=== PATIENT | male | born 1955 | race Caucasian/White ===

== ENCOUNTER 2020-05-23 14:20 | Emergency (ER) | payer MEDICARE, OTHER ==
[~2020-05-23] VITALS: Ht 170.2 cm; Wt 86.4 kg
[~2020-05-23 14:20] MED LIST: CRESTOR40 MG PO; ST. JOSEPH81 M1 PO
[2020-05-23 14:30] VITALS: BP 146/72; TEMP 98.2
[2020-05-23] MEDS ORDERED: CRESTOR20 MG PO (15:25)
[2020-05-23] MEDS ORDERED: PREDNISONE50 MG PO ×3 (15:57→17:11)
[2020-05-23] MEDS ORDERED: VALIUM 10MG10 MG/TAB PO (15:57)
[2020-05-23] MEDS ORDERED: PERCOCET 325 MG1 TAB PO (15:57)
[2020-05-23 17:11] VITALS: PULSE 67
== END 2020-05-23 17:11 | disposition home or self-care (01) ==
LOC: COL.ER 14:20
DX: M54.41 Lumbago with sciatica, right side (principal); M79.89 Other specified soft tissue disorders; I10 Essential (primary) hypertension

== ENCOUNTER → 2020-05-28 | Outpatient (CLI) | payer MEDICARE, OTHER ==
[~2020-05-28] MED LIST changes: +CRESTOR20 MG PO; +PERCOCET 325 MG1 TAB PO; +PREDNISONE50 MG PO; +VALIUM 10MG10 MG/TAB PO
== END ==
LOC: COL.RAD 13:36
DX: M51.16 Intervertebral disc disorders with radiculopathy, lumbar region (principal)

== ENCOUNTER 2020-09-17 07:02 | Emergency (ER) | payer MEDICARE, OTHER ==
[~2020-09-17] VITALS: Ht 170.2 cm; Wt 86.4 kg
[2020-09-17 07:09] VITALS: TEMP 97.6
[2020-09-17] MEDS ORDERED: PERCOCET 325 MG1 TA3 PO (07:56)
[2020-09-17] MEDS ORDERED: NORFLEX 10100 MG/TAB PO (07:56)
[2020-09-17 08:10] VITALS: BP 168/70; PULSE 68
== END 2020-09-17 08:09 | disposition home or self-care (01) ==
LOC: COL.ER 07:02
DX: M54.41 Lumbago with sciatica, right side (principal); E78.00 Pure hypercholesterolemia, unspecified

== ENCOUNTER 2020-09-20 21:39 | Emergency (ER) | payer MEDICARE, OTHER ==
[~2020-09-20] VITALS: Ht 170.2 cm; Wt 86.4 kg
[~2020-09-20 21:39] MED LIST changes: +NORFLEX 10100 MG/TAB PO; +PERCOCET 325 MG1 TA3 PO
[2020-09-20 21:58] VITALS: TEMP 98.3
[2020-09-20] MEDS ORDERED: PREDNISONE10 MG PO (22:25)
[2020-09-20 22:58] VITALS: BP 154/85; PULSE 88
== END 2020-09-20 22:58 | disposition home or self-care (01) ==
LOC: COL.ER 21:39
DX: M54.16 Radiculopathy, lumbar region (principal); Z79.52 Long term (current) use of systemic steroids
CPT/HCPCS: J1170; J2550

== ENCOUNTER 2024-01-18 06:01 | Inpatient (IN) | payer MEDICARE, OTHER ==
[~2024-01-18] VITALS: Ht 170.2 cm; Wt 87.7 kg
[~2024-01-18 06:01] MED LIST changes: -CRESTOR20 MG PO; +PREDNISONE10 MG PO
[2024-01-25] VITALS (10 sets, daily range): BP systolic 114–188; BP diastolic 54–100; PULSE 56–110; TEMP 98–98.7
[2024-01-25] MEDS ORDERED: NS Flush 10 ML SYRINGE PRN ICA (08:45)
[2024-01-25] MEDS ORDERED: Sotalol 80 MG TAB PO BID PO SCH (09:00)
[2024-01-25] MEDS ORDERED: NS Flush 10 ML SYRINGE BID ICA SCH (09:00)
[2024-01-25] MEDS ORDERED: TRICOR145 MG PO (09:02)
[2024-01-25] MEDS ORDERED: HYGROTON 2525 MG/TAB PO (09:03)
[2024-01-25] MEDS ORDERED: NORVASC 10MG10 MG PO (09:03)
[2024-01-25] MEDS ORDERED: KLOR-CON M1010 MEQ PO (09:05)
[2024-01-25] MEDS ORDERED: TOPROL XL 25MG25 MG PO (09:05)
[2024-01-25] MEDS ORDERED: PHENERGAN 25 TA25 MG PO (09:07)
[2024-01-25] MEDS ORDERED: ATIVAN 1MG T1 MG/TAB PO (09:08)
[2024-01-25] MEDS ORDERED: PEPCID 20MG TAB20 MG PO (09:09)
[2024-01-25] MEDS ORDERED: TYLENOL 500MG500 MG PO (09:12)
[2024-01-25] MEDS ORDERED: DRISTAN15 ML NS (09:13)
[2024-01-25 10:08] LABS: ALBUMIN 4.3 gm/dL (3.4-4.8); BILIRUBIN,TOTAL 0.5 mg/dL (0.2-1.2); CALCIUM 10.1 mg/dL (8.4-10.2); CREATININE, serum 1.23 mg/dL (0.72-1.25); MAGNESIUM 1.6 mg/dL (1.6-2.6); TOTAL PROTEIN 7.6 gm/dL (6.2-8.1)
[2024-01-25] MEDS ORDERED: Mag/Al Hydrox/Simeth Susp 30 ML CUP PO PRN (10:15)
[2024-01-25] MEDS ORDERED: Temazepam 15 MG CAP PO PRN (10:15)
[2024-01-25] MEDS ORDERED: Docusate Sodium 100 MG CAP PO PRN (10:15)
[2024-01-25] MEDS ORDERED: LORazepam 2 MG/ML 1 ML VIAL IM PRN (10:15)
[2024-01-25] MEDS ORDERED: LORazepam 1 MG TAB PO PRN ×2 (10:15→13:15)
[2024-01-25] MEDS ORDERED: LORazepam 2 MG/ML 1 ML VIAL IV PRN (10:15)
[2024-01-25 10:24] LABS: POTASSIUM 2.9 mmol/L (3.5-4.5)
[2024-01-25 10:25] LABS: INR 1.1 (0.8-3.0); PROTHROMBIN TIME 11.9 SECONDS (9.7-12.8)
[2024-01-25 10:28] LABS: BASO # 0.1 K/mm3 (0.0-0.2); BASO % 0.9 % (0.0-2.0); EOS % 0.3 % (0.0-4.0); GRAN # 7.5 K/mm3 (1.4-6.5); HEMATOCRIT 41.4 % (42.0-52.0); HEMOGLOBIN 14.7 g/dl (13.5-18.0); LYMPH # 2.2 K/mm3 (1.2-3.4); LYMPH % 19.9 % (20.0-51.0); MEAN CELL VOLUME 91 fl (80.0-100.0); MEAN CORPUSCULAR HEMOGLOBIN 32 pg (27-31); MEAN CORPUSCULAR HGB CONC 36 g/dl (33.0-37.0); MEAN PLATELET VOLUME 9.8 fl (7.4-10.4); MONO % 9.3 % (1.7-9.3); PLATELET COUNT 325 K/mm3 (130-400); RED BLOOD COUNT 4.57 M/mm3 (4.20-5.60); REDCELL DISTRIBUTION WIDTH-CV 12.2 % (11.5-14.5)
[2024-01-25] MEDS ORDERED: oxyCODONE/Acetaminophen 10-325 MG TAB PO PRN (13:00)
[2024-01-25] MEDS ORDERED: oxyCODONE 5 MG TAB PO PRN (13:15)
[2024-01-25] MEDS ORDERED: Acetaminophen 500 MG TAB PO PRN (13:15)
[2024-01-25] MEDS ORDERED: Famotidine 20 MG TAB PO PRN (13:15)
[2024-01-25] MEDS ORDERED: Promethazine 25 MG TAB PO PRN (13:15)
--- NOTE | 2024-01-25 13:30 | NUR ---
Patient admitted to unit around 0830. Gait steady, no assistive devices noted. HR tachycardic. Patient alert and oriented x4. Education provided on what to expect during hospital stay with sotalol and daily EKGs. 22g IV initiated to right hand x2 attempts. Patient brought home medications in, med rec complete. Home medications labeled with patient sticker and placed in med room. Pharmacy notified. 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 Usual amount is 5-7 per cardiology. CIWA protocol initiatied with Q2 hour vital signs. Lab called this nurse with a potassium of 2.9, cardiology notified. Call light within reach, all needs met at this time.
[2024-01-25] MEDS ORDERED: Oxymetazoline 0.05% Nasal Spray 30 ML BOTTLE NS SCH (14:00)
[2024-01-25] MEDS ORDERED: Magnesium Sulfate 4% 50 ML IV ONE (14:30)
[2024-01-25] MEDS ORDERED: *Potassium Replacement Protocol MC SCH (14:30)
[2024-01-25] MEDS ORDERED: Potassium Bicarbonate/Citrate 20 MEQ Effervescent TAB PO SCH (14:45)
[2024-01-25] MEDS ORDERED: Potassium Chloride 100 ML IV SCH ×2 (14:45→16:45)
--- NOTE | 2024-01-25 19:12 | NUR ---
Potassium continues to be replaced with PO supplements. Attempted IV potassium, but patient could not tolerate it and states it burned too much. Verbal orders obtained from Dr. Sanchez around 1730 to discontinue IV potassium and utilize PO instead. Potassium lab re-check scheduled already. Patient resting in bed with call light in reach, all needs met at this time.
[2024-01-25] MEDS ORDERED: Atorvastatin 40 MG TAB PO SCH (21:00)
[2024-01-25] MEDS ORDERED: Rosuvastatin 20 MG **** subs to Atorvastatin 40 MG PO SCH (21:00)
--- NOTE | 2024-01-25 21:58 | NUR ---
Patient assessed around 2114. Alert and oriented, and able to make needs known. Denies having pain and discomfort. Peripheral INT to right hand. Denies SOB and dyspnea. LS CTA. HRR. Telemetry in place. BSAx4. 2+ edema BLE. Patient refused Lipitor, stating that it does not work for him, and he takes Crestor at time. Reports medications were sent to pharmacy earlier today. Will request that medication be changed to home medication tomorrow. Voices no further questions, needs, or concerns at this time. In bed with call light within reach.
[2024-01-26] VITALS (18 sets, daily range): BP systolic 116–156; BP diastolic 42–78; PULSE 50–86; TEMP 97.5–99.3
[2024-01-26 06:41] LABS: BASO # 0.1 K/mm3 (0.0-0.2); BASO % 1.3 % (0.0-2.0); EOS # 0.1 K/mm3 (0.0-0.7); EOS % 1.6 % (0.0-4.0); GRAN # 3.5 K/mm3 (1.4-6.5); GRAN % 51.7 % (42.2-75.2); HEMATOCRIT 40.7 % (42.0-52.0); HEMOGLOBIN 14.1 g/dl (13.5-18.0); LYMPH # 2.1 K/mm3 (1.2-3.4); LYMPH % 30.9 % (20.0-51.0); MEAN CELL VOLUME 92 fl (80.0-100.0); MEAN CORPUSCULAR HEMOGLOBIN 32 pg (27-31); MEAN CORPUSCULAR HGB CONC 35 g/dl (33.0-37.0); MEAN PLATELET VOLUME 9.7 fl (7.4-10.4); MONO # 0.9 K/mm3 (0.1-0.6); MONO % 14.1 % (1.7-9.3); PLATELET COUNT 287 K/mm3 (130-400); RED BLOOD COUNT 4.43 M/mm3 (4.20-5.60); REDCELL DISTRIBUTION WIDTH-CV 12.2 % (11.5-14.5)
--- NOTE | 2024-01-26 07:00 | NUR ---
PT RESTING IN BED WATCHING TV. PT IS RA. PT IS SB ON TELE. PT IS AXOX3. PT HAS CALL LIGHT AND INSTRUCTED TO CALL WITH ALL NEEDS.
[2024-01-26 07:04] LABS: CALCIUM 9.8 mg/dL (8.4-10.2); CREATININE, serum 1.12 mg/dL (0.72-1.25); POTASSIUM 3.3 mmol/L (3.5-4.5)
--- NOTE | 2024-01-26 08:19 | NUR ---
PT REQUESTS TO TAKE HOME CRESTOR AND STATES LIPITOR DOES NOT WORK FOR HIM. SANTOSH RICE WITH CARDIOLOGY NOTIFIED AND ORDER RECEIVED. PHARMACY CALLED TO LABEL HOME MEDICATION.
[2024-01-26] MEDS ORDERED: Fenofibrate 54 MG TABLET PO SCH (09:00)
[2024-01-26] MEDS ORDERED: Patient's Own Medication Item PO SCH (09:00)
[2024-01-26] MEDS ORDERED: Fenofibrate (Tricor) 145 MG **** subs to Fenofibrate (Lofibra) 162 MG PO SCH (09:00)
[2024-01-26] MEDS ORDERED: amLODIPine 10 MG TAB PO SCH (09:00)
[2024-01-26] MEDS ORDERED: Chlorthalidone 25 MG TAB PO SCH (09:00)
[2024-01-26 11:56] LABS: TRICYCLIC ANTIDEPRESS URINE NEGATIVE (NEGATIVE)
--- NOTE | 2024-01-26 13:01 | NUR ---
boom stick worker met with pt to complete intake. He reports he lives with his , Josey [phone] in [place]. He sees LEAD SLOT TECHNICIAN Natalie Archer and obtains medications from [facility] with no difficulties. He is independent with ADLS and uses a cane for DME. He reports he ambulates fine with no mobility issues. He states he has a DPOA-HC at home listing his . Discharge Plan: Home
--- NOTE | 2024-01-26 13:47 | NUR ---
Initial visit; Patient originally from [place]. He and Desk Maker talked about [place] beach [place]. He thanked Desk Maker for wishing him well and offering God's blessings.
--- NOTE | 2024-01-26 19:36 | NUR ---
Patient's HR 50s at this time. Last night, HR was decreasing into low 40s. Call placed to Dr. Madison at this time to see if he was ok with Sotalol being given still. Order received to continue with Sotalol as ordered.
--- NOTE | 2024-01-26 19:58 | NUR ---
Patient assessed around 1950. Alert and oriented, and able to make needs known. Denies having pain and discomfort at this time. Peripheral INT to right hand. Denies SOB and dyspnea. LS CTA in upper lobes, diminished in lower. HRR. Telemetry in place-sinus jannie in the 50s at this time. BSAx4. Voices no questions, needs, or concerns at this time. Encouraged to call when ready for pain medication for back, and voiced understanding. In bed with call light within reach.
--- NOTE | 2024-01-26 22:43 | NUR ---
Patient given PRN Oxycodone for pain as requested.
[2024-01-27] VITALS (9 sets, daily range): BP systolic 119–159; BP diastolic 45–78; PULSE 50–88; TEMP 97.5–98.5
--- NOTE | 2024-01-27 06:32 | NUR ---
Patient given PRN Oxycodone for pain as requested during the night. HR has been 40s-50s during the night on telemetry. Voices no questions, needs, or concerns at this time. In bed with call light within reach.
[2024-01-27 06:57] LABS: BASO # 0.1 K/mm3 (0.0-0.2); BASO % 1.2 % (0.0-2.0); EOS # 0.1 K/mm3 (0.0-0.7); EOS % 1.6 % (0.0-4.0); GRAN # 4.5 K/mm3 (1.4-6.5); GRAN % 54.3 % (42.2-75.2); HEMATOCRIT 39.5 % (42.0-52.0); HEMOGLOBIN 13.9 g/dl (13.5-18.0); LYMPH # 2.4 K/mm3 (1.2-3.4); MEAN CELL VOLUME 91 fl (80.0-100.0); MEAN CORPUSCULAR HEMOGLOBIN 32 pg (27-31); MEAN CORPUSCULAR HGB CONC 35 g/dl (33.0-37.0); MEAN PLATELET VOLUME 9.5 fl (7.4-10.4); MONO # 1.1 K/mm3 (0.1-0.6); MONO % 13.4 % (1.7-9.3); PLATELET COUNT 320 K/mm3 (130-400); RED BLOOD COUNT 4.34 M/mm3 (4.20-5.60); REDCELL DISTRIBUTION WIDTH-CV 11.9 % (11.5-14.5)
[2024-01-27 07:08] LABS: CALCIUM 9.5 mg/dL (8.4-10.2); CREATININE, serum 1.26 mg/dL (0.72-1.25); POTASSIUM 3.3 mmol/L (3.5-4.5)
--- NOTE | 2024-01-27 08:33 | NUR ---
HR CURRENTLY 67 BOM, QTC THIS AM WAS 451. WILL GIVEN SOTALOL
[2024-01-27] MEDS ORDERED: BETAPACE 80MG80 MG PO (10:04)
[2024-01-27] MEDS ORDERED: ALDACTONE 25MG25 M1 PO (10:05)
--- NOTE | 2024-01-27 10:26 | NUR ---
PATIENT GIVEN DISCHRAGE INSTRUCTIONS AND EDUCATION. IV AN TELE REMOVED
--- NOTE | 2024-01-27 11:00 | NUR ---
PATIENT HOME MEDS RETURNED TO HIM. JOEL LEFT IN STABLE CONDITION.
== END 2024-01-27 11:00 | disposition home or self-care (01) | DRG 310 ==
LOC: MEDICAL 01-25 06:00
PROVIDERS: ADMIT Internal Medicine Cardiovascular Disease
DX: I48.0 Paroxysmal atrial fibrillation (principal); E87.6 Hypokalemia; Z23 Encounter for immunization
CPT/HCPCS: J3475; J3480